=== PATIENT | male | born 1995 | race Asian ===

== ENCOUNTER → 2016-10-05 | Outpatient (CLI) | payer OTHER ==
[2016-10-05 17:49] LABS: BASO % 0.3 %; BASO ABS # 0.04 K/uL (0-0.2); COMPLETE YES; EOS % 0.5 %; IG% 0.2 %; LYMPH % 16.8 %; MEAN CELL VOLUME 83.7 fL (80-100); MEAN CORPUSCULAR HEMOGLOBIN 28.3 pg (25-34); MEAN CORPUSCULAR HGB CONC 33.8 g/dl (32-36); MEAN PLATELET VOLUME 9.3 fL (7.4-10.4); MONO % 10.7 %; NEUT % 71.5 %; PLATELET COUNT 393 K/uL (130-400); RED BLOOD COUNT 4.66 M/uL (4.7-6.1); WHITE BLOOD COUNT 13.66 K/uL (4.8-10.8)
[2016-10-05 17:55] LABS: URINE APPEARANCE CLEAR (CLEAR); URINE COLOR DK YELLOW; URINE NITRITE POS (NEG); URINE PH 5.5 (4.5-7.5); URINE SPECIFIC GRAVITY 1.043 (1.000-1.030); UROBILINOGEN NEG (NEG)
[2016-10-05 18:06] LABS: MANUAL MICROSCOPIC REQUIRED? NO; REVIEW REQ? NO; URINE BILIRUBIN NEG (NEG)
[2016-10-05 18:19] LABS: ALT/SGPT 17 U/L (12-78); AST/SGOT 15 U/L (15-37); BLOOD UREA NITROGEN 12 mg/dl (7-18); BUN/CREATININE RATIO 13.1 (10-20); CALCIUM 9.1 mg/dl (8.5-10.1); CARBON DIOXIDE 28 mmol/L (21-32); CHLORIDE 99 mmol/L (98-107); GLUCOSE 87 mg/dl (70-99); SODIUM 137 mmol/L (136-145)
[2016-10-05 18:31] LABS: ALB/GLOB RATIO 0.6 (0.9-2); ALKALINE PHOSPHATASE 73 U/L (45-117)
== END | disposition home or self-care (01) ==
LOC: C.LAB1850 17:04
PROVIDERS: ATTEND Nurse Practitioner Adult Health
DX: R58 Hemorrhage, not elsewhere classified (principal); R21 Rash and other nonspecific skin eruption; R00.0 Tachycardia, unspecified; L08.9 Local infection of the skin and subcutaneous tissue, unspecified; K51.50 Left sided colitis without complications; R63.4 Abnormal weight loss